=== PATIENT | female | born 2000 | race Caucasian/White ===

== ENCOUNTER 2024-05-08 22:35 | Day surgery (SDC) | payer OTHER ==
[2024-05-08] MEDS ORDERED: FAMOTIDINE 20 MG/50 ML IVPB 20 MG/50 ML MG IVPB ONE (23:15)
[2024-05-08] MEDS ORDERED: morphine SULFATE 4 MG/ML VIAL ONE (23:15)
[2024-05-08] MEDS ORDERED: ACETAMINOPHEN INJECTION 100 ML ONE (23:15)
[2024-05-08] MEDS: ACETAMINOPHEN 1000 MG/100 ML BAG IVPB ONE (23:35)
[2024-05-08] MEDS: morphine CARPU-JECT 4 MG/1 ML DISP.SYRIN IVPUSH ONE (23:36)
[2024-05-08] MEDS: FAMOTIDINE 20 MG/50 ML IVPB 20 MG/50 ML MG IVPB ONE (23:36)
[2024-05-08 23:41] LABS: BASO % 0.5 % (0-2.0); EOS % 2.9 % (0-4.5); HEMATOCRIT 40.9 % (32.4-45.2); HEMOGLOBIN 13.8 GM/dL (10.7-15.3); LYMPH % 32.2 % (8-40); MCH 27.7 pg (25.7-33.7); MCHC 33.7 g/dl (32.0-36.0); MEAN CELL VOLUME 82.2 fl (80-96); MEAN PLT VOLUME 6.6 fl (7.5-11.1); MONO % 6.9 % (3.8-10.2); NEUT % 57.5 % (42.8-82.8); PLATELET COUNT 458 10^3/uL (134-434); RBC 4.97 M/mm3 (3.60-5.2); RDW 13.3 % (11.6-15.6); WHITE BLOOD COUNT 13.3 K/mm3 (4.0-10.0)
[2024-05-09 00:04] LABS: POTASSIUM 3.8 mmol/L (3.5-5.1)
[2024-05-09 00:06] LABS: CALCIUM 9.3 mg/dL (8.5-10.1)
[2024-05-09 00:07] LABS: BLOOD UREA NITROGEN 15.4 mg/dL (7-18)
[2024-05-09 00:10] LABS: CREATININE 0.9 mg/dL (0.55-1.3)
[2024-05-09 00:12] LABS: BILIRUBIN,TOTAL 0.6 mg/dL (0.2-1); TOT PROT 7.8 g/dl (6.4-8.2)
[2024-05-09] MEDS ORDERED: PIPERACILLIN/TAZOB 3.375 GM 3.375 GM/50 ML BAG IVPB ONE ×2 (03:00→08:56)
[2024-05-09] MEDS ORDERED: MORPHINE SULFATE 2 MG/ML SYRINGE ONE (03:06)
[2024-05-09] MEDS: PIPERACILLIN/TAZOB 3.375 GM 3.375 GM in DEXTROSE 5%-WATER - 50 ML IVPB ONE (03:12)
[2024-05-09] MEDS: morphine CARPU-JECT 2 MG/1 ML DISP.SYRIN IVPUSH ONE (03:13)
[2024-05-09] MEDS: SODIUM CHLORIDE 1,000 ML IV STA (03:46)
[2024-05-09] MEDS ORDERED: morphine SULFATE 4 MG/ML VIAL IVPUSH PRN (03:57)
[2024-05-09] MEDS ORDERED: ACETAMINOPHEN 1000 MG/100 ML BAG IVPB PRN (03:57)
[2024-05-09] MEDS ORDERED: PIPERACILLIN/TAZOB 3.375 GM 3.375 GM in DEXTROSE 5%-WATER - 50 ML IVPB SCH (04:00)
[2024-05-09] MEDS: LACTATED RINGERS SOLUTION 1,000 ML/1,000 ML INFUS.BAG IV SCH (06:30)
[2024-05-09 06:48] LABS: INR 1.04 (0.83-1.09)
[2024-05-09 07:00] LABS: HEMATOCRIT 36.4 % (32.4-45.2); HEMOGLOBIN 12.4 GM/dL (10.7-15.3); MCH 28.2 pg (25.7-33.7); MCHC 34.2 g/dl (32.0-36.0); MEAN CELL VOLUME 82.5 fl (80-96); MEAN PLT VOLUME 6.9 fl (7.5-11.1); PLATELET COUNT 420 10^3/uL (134-434); RBC 4.41 M/mm3 (3.60-5.2); RDW 13.4 % (11.6-15.6); WHITE BLOOD COUNT 11.4 K/mm3 (4.0-10.0)
[2024-05-09 07:25] LABS: ALBUMIN 3.6 g/dl (3.4-5.0); BLOOD UREA NITROGEN 13.4 mg/dL (7-18); CALCIUM 8.4 mg/dL (8.5-10.1); MAGNESIUM 1.9 mg/dL (1.8-2.4)
[2024-05-09 07:28] LABS: CREATININE 0.8 mg/dL (0.55-1.3); PHOSPHOROUS 3.8 mg/dL (2.5-4.9)
[2024-05-09 07:29] LABS: BILIRUBIN,TOTAL 0.8 mg/dL (0.2-1)
[2024-05-09 07:30] LABS: TOT PROT 6.9 g/dl (6.4-8.2)
[2024-05-09] MEDS: PIPERACILLIN/TAZOB 3.375 GM 3.375 GM in DEXTROSE 5%-WATER - 50 ML IVPB SCH (09:05)
[2024-05-09] MEDS ORDERED: PIPERACILLIN/TAZOB 4.5 GM 4.5 GM/100 ML BAG IVPB ONE (18:11)
[2024-05-09] MEDS: PIPERACILLIN/TAZOB 4.5 GM 4.5 GM in DEXTROSE 5%-WATER 100 ML IVPB SCH (18:23)
[2024-05-10] MEDS ORDERED: PIPERACILLIN/TAZOB 4.5 GM 4.5 GM/100 ML BAG IVPB ONE ×2 (03:03→09:12)
[2024-05-10 07:40] LABS: BASO % 0.6 % (0-2.0); EOS % 5.3 % (0-4.5); HEMATOCRIT 38.7 % (32.4-45.2); HEMOGLOBIN 12.8 GM/dL (10.7-15.3); LYMPH % 42.9 % (8-40); MCH 27.8 pg (25.7-33.7); MCHC 33.1 g/dl (32.0-36.0); MEAN CELL VOLUME 84.1 fl (80-96); MEAN PLT VOLUME 6.7 fl (7.5-11.1); MONO % 6.7 % (3.8-10.2); NEUT % 44.5 % (42.8-82.8); PLATELET COUNT 417 10^3/uL (134-434); RDW 13.1 % (11.6-15.6); WHITE BLOOD COUNT 8.2 K/mm3 (4.0-10.0)
[2024-05-10] MEDS ORDERED: ONDANSETRON 4 MG/2 ML VIAL IVPUSH PRN ×2 (07:42→13:11)
[2024-05-10] MEDS ORDERED: oxyCODONE HCL 5 MG TABLET PO PRN (07:42)
[2024-05-10] MEDS ORDERED: LACTATED RINGERS SOLUTION 1,000 ML IV SCH (07:45)
[2024-05-10 07:59] LABS: POTASSIUM 4.2 mmol/L (3.5-5.1)
[2024-05-10 08:33] LABS: CALCIUM 8.9 mg/dL (8.5-10.1)
[2024-05-10 08:34] LABS: BLOOD UREA NITROGEN 8.9 mg/dL (7-18)
[2024-05-10 08:38] LABS: CREATININE 0.8 mg/dL (0.55-1.3)
[2024-05-10] MEDS ORDERED: LIDOCAINE HCL/PF 2% SDV 5ML VIAL ONE (09:46)
[2024-05-10] MEDS ORDERED: HYDROmorphone HCl 2 MG/ML VIAL ONE (09:46)
[2024-05-10] MEDS ORDERED: DEXAMETHASONE SOD PHOSPHATE 4 MG/1 ML VIAL ONE (09:46)
[2024-05-10] MEDS ORDERED: MIDAZOLAM HCL 2 MG/2 ML SINGLE DOSE VIAL ONE (09:46)
[2024-05-10] MEDS ORDERED: PIPERACILLIN/TAZOB 3.375 GM 3.375 GM in DEXTROSE 5%-WATER - 50 ML IVPB SCH (10:00)
[2024-05-10] MEDS ORDERED: ACETAMINOPHEN INJECTION 100 ML ONE ×2 (10:32→17:33)
[2024-05-10] MEDS ORDERED: BUPIVACAINE HCL/PF 0.25% (2.5MG/ML) 10 ML VIAL ONE (10:35)
[2024-05-10] MEDS ORDERED: ROCURONIUM BROMIDE 50 MG/5 ML SYRINGE ONE (11:35)
[2024-05-10] MEDS: BUPIVACAINE HCL/PF 0.25% (2.5MG/ML) 10 ML VIAL IJ ONE (11:44)
[2024-05-10] MEDS ORDERED: SUGAMMADEX SODIUM 200 MG/2 ML VIAL ONE (11:50)
[2024-05-10] MEDS ORDERED: LACTATED RINGERS SOLUTION 1,000 ML/1,000 ML INFUS.BAG IV SCH (13:11)
[2024-05-10] MEDS: LACTATED RINGERS SOLUTION 1,000 ML IV SCH (15:21)
[2024-05-10] MEDS ORDERED: KETOROLAC TROMETHAMINE 30 MG/1 ML VIAL ONE (16:24)
[2024-05-10] MEDS: KETOROLAC TROMETHAMINE 30 MG/1 ML VIAL IVPUSH PRN (16:26)
[2024-05-10] MEDS: FENTANYL CITRATE/PF 50 MCG/ML VIAL IVPUSH ONE (16:40)
[2024-05-10] MEDS: DOCUSATE SODIUM 100 MG CAPSULE (FP) PO SCH (18:03)
[2024-05-10 18:32] VITALS: BMI 34.5
[2024-05-10] MEDS: ACETAMINOPHEN 1000 MG/100 ML BAG IVPB SCH (18:40)
[2024-05-10] MEDS: oxyCODONE HCL 5 MG TABLET PO PRN (20:42)
[2024-05-11] MEDS: oxyCODONE HCL 5 MG TABLET PO PRN (03:39)
[2024-05-11 08:09] VITALS: BP 125/73; PULSE 84; RESP 20; TEMP 99
[2024-05-11 09:39] LABS: BASO % 0.4 % (0-2.0); EOS % 0.2 % (0-4.5); HEMATOCRIT 37.2 % (32.4-45.2); HEMOGLOBIN 12.6 GM/dL (10.7-15.3); LYMPH % 24.3 % (8-40); MCH 27.7 pg (25.7-33.7); MCHC 33.7 g/dl (32.0-36.0); MEAN PLT VOLUME 6.5 fl (7.5-11.1); MONO % 6.7 % (3.8-10.2); NEUT % 68.4 % (42.8-82.8); PLATELET COUNT 453 10^3/uL (134-434); RBC 4.54 M/mm3 (3.60-5.2); RDW 13.2 % (11.6-15.6); WHITE BLOOD COUNT 12.8 K/mm3 (4.0-10.0)
[2024-05-11 09:48] LABS: POTASSIUM 3.7 mmol/L (3.5-5.1)
[2024-05-11 09:52] LABS: BLOOD UREA NITROGEN 9.1 mg/dL (7-18)
[2024-05-11 09:53] LABS: CALCIUM 8.7 mg/dL (8.5-10.1)
[2024-05-11 09:56] LABS: CREATININE 0.8 mg/dL (0.55-1.3)
[2024-05-11] MEDS ORDERED: ACETAMINOPHEN 500 MG TABLET (FP) PO PRN (13:02)
== END 2024-05-11 14:23 | disposition home or self-care (01) ==
LOC: JER 22:35 → UNDOADMOB 05-09 03:21 → JERBED 05-09 03:21 → INTOOBSV 05-09 03:21 → JERBED 05-09 13:10 → UNDOADMOB 05-09 13:53 → JASUSAT 05-10 11:02 → SUATTDRO 05-10 11:02 → J6S 05-10 17:43 → JASUSAT 05-11 14:23
PROVIDERS: ATTEND Internal Medicine
PROC: 0FT44ZZ Resection of Gallbladder, Percutaneous Endoscopic Approach (ICD-10-PCS; principal; 2024-05-10 10:30)
DX: K80.10 Calculus of gallbladder with chronic cholecystitis without obstruction (principal)
CPT/HCPCS: 36415; 71046-TC-FY; 76705-TC; 80048; 80053; 83690; 83735; 84100; 84703; 85025; 85027; 85610; 86850; 86900; 86901; 88304-TC; 93005; 93010; 94760; 99285-25; J0131